=== PATIENT | male | born 1980 | race Caucasian/White ===

== ENCOUNTER → 2018-08-29 | Outpatient (CLI) | payer SELFPAY ==
--- NOTE | 2018-08-29 13:50 | Diagnostic Imaging Report ---
INDICATION: Left testicular pain. FINDINGS: The testicular parenchyma appears homogenous and normal with normal color Doppler blood flow. Incidentally noted is a tiny 7 mm epididymal head cyst on the right. The left epididymis appears mildly hypervascularized and hypoechoic, suspicious for mild epididymitis. No evidence for orchitis. The right epididymis is borderline hypervascular. IMPRESSION: The sonographic findings are suspect for left-sided epididymitis with more mild involvement on the right not excluded. No evidence for torsion or orchitis. No abscess, hernia, or varicocele. Dictated by: Dictated on workstation # [id number]
== END ==
LOC: RAD 12:20
PROVIDERS: ATTEND Nurse Practitioner Family
DX: N50.812 Left testicular pain (principal)
CPT/HCPCS: 76870

== ENCOUNTER 2019-07-13 05:38 | Outpatient (CLI) | payer OTHER ==
[~2019-07-13] VITALS: Ht 177 cm; Wt 97.9 kg
== END 2019-07-13 12:52 ==
LOC: PREOP 05:38
PROVIDERS: ATTEND Podiatrist Foot & Ankle Surgery
DX: Z01.818 Encounter for other preprocedural examination (principal)

== ENCOUNTER 2019-07-17 12:04 | Day surgery (SDC) | payer OTHER ==
[~2019-07-17] VITALS: Ht 177 cm; Wt 97.9 kg
[2019-07-17] VITALS (12 sets, daily range): BP systolic 14–122; BP diastolic 66–82
[2019-07-17] MEDS ORDERED: ceFAZolin INJECTION 1,000 MG in WATER (STERILE) FOR INJECTION 10 ML IV ONE (12:30)
[2019-07-17] MEDS ORDERED: DEXAMETHASONE 10 MG/ML (DECADRON) 1 ML VIAL ONE ×2 (12:46→12:54)
[2019-07-17] MEDS ORDERED: LIDOCAINE 1% INJ 20 ML 20 ML VIAL ONE (12:46)
[2019-07-17] MEDS ORDERED: BUPIVACAINE 0.5% 30 ML (SENSORCAINE) VIAL ONE (12:46)
[2019-07-17] MEDS ORDERED: proPOfol 200 MG/20 ML (DIPRIVAN) VIAL IV ONE (12:54)
[2019-07-17] MEDS ORDERED: ONDANSETRON 4 MG/2 ML (SDV) Z0FRAN ONE (12:54)
[2019-07-17] MEDS ORDERED: fentaNYL INJECTION 100 MCG/2 ML AMP ONE (12:54)
[2019-07-17] MEDS ORDERED: SEVOFLURANE (ULTANE) 15 ML INHAL SOLN ONE ×2 (12:54→15:36)
[2019-07-17] MEDS ORDERED: MIDAZOLAM 2 MG/2 ML (VERSED) VIAL ONE (12:54)
[2019-07-17] MEDS ORDERED: LIDOCAINE PF 2% 5 ML (XYLOCAINE) VIAL ONE (12:54)
[2019-07-17] MEDS ORDERED: LACTATED RINGERS 1,000 ML IV PRN (13:48)
[2019-07-17] MEDS ORDERED: fentaNYL INJECTION 100 MCG/2 ML AMP IVP ONE (14:30)
[2019-07-17] MEDS ORDERED: ONDANSETRON 4 MG/2 ML (SDV) Z0FRAN IVP PRN ×2 (14:30→16:00)
[2019-07-17] MEDS ORDERED: morphine INJ 10 MG/ML 1ML (SYR OR VIAL) IVP ONE ×2 (14:30→16:00)
[2019-07-17] MEDS ORDERED: MEPERIDINE (DEMEROL) INJ 50 MG/ML IVP ONE ×2 (14:30→16:00)
--- NOTE | 2019-07-17 15:47 | Anesthesia-General Post-Op ---
General Patient Condition Mental Status/LOC: Same as Preop Cardiovascular: Satisfactory Nausea/Vomiting: Absent Respiratory: Satisfactory Pain: Controlled Complications: Absent Post Op Complications Complications None Follow Up Care/Instructions Patient Instructions None needed. Anesthesia/Patient Condition Patient Condition Patient is doing well, no complaints, stable vital signs, no apparent adverse anesthesia problems. No complications reported per nursing. LOPEZ MCCLURE CRNA Jul 17, 2019 15:47 POS
--- NOTE | 2019-07-17 15:53 | Progress Note-Pre Operative ---
Pre-Operative Progress Note H&P Reviewed The H&P was reviewed, patient examined and no changes noted. Date Seen by Provider: Jul 17, 2019 Time Seen by Provider: 14:00 Date H&P Reviewed: Jul 17, 2019 Time H&P Reviewed: 14:00 Pre-Operative Diagnosis: Fracture right 5th metatarsal VIOLA CHEN DPM Jul 17, 2019 15:53 POS
[2019-07-17] MEDS ORDERED: LACTATED RINGERS 1,000 ML IV SCH (15:54)
--- NOTE | 2019-07-17 15:54 | Progress Note-Post Operative ---
Post-Operative Progess Note Surgeon (s)/Scene Painter (s) Surgeon VIOLA CHEN DPM Scene Painter: none Pre-Operative Diagnosis Fracture right 5th metatarsal Post-Operative Diagnosis Same Procedure & Operative Findings Date of Procedure 07/17/19 Procedure Performed/Findings ORIF of right 5th Metatarsal Fracture Anesthesia Type General Estimated Blood Loss Estimated blood loss (mL): Minimal Specimens/Packing Specimens Removed None VIOLA CHEN DPM Jul 17, 2019 15:54 POS
[2019-07-17] MEDS ORDERED: CEPH500C PO (15:56)
[2019-07-17] MEDS ORDERED: ACHD5005 PO (15:56)
[2019-07-17] MEDS ORDERED: HYDROcodone/APAP 5 MG/325 MG (LORTAB) TAB PO PRN (16:00)
--- NOTE | 2019-07-17 16:00 | Diagnostic Imaging Report ---
INDICATION: Fluoroscopy for left foot surgery. EXAMINATION: Fluoroscopy was provided in the OR during left foot surgery. 7 seconds of fluoroscopic time was utilized. FINDINGS: Images demonstrate a partially threaded screw transfixing the proximal 5th metatarsal. Alignment is anatomic. IMPRESSION: Fluoroscopy for left 5th metatarsal ORIF. Dictated by: Dictated on workstation # [id number]
--- NOTE | 2019-07-18 03:17 | OPERATIVE REPORT ---
DATE OF SERVICE: 07/17/2019 SURGEON: Nayeli Rahman DPM. PREOPERATIVE DIAGNOSIS: Avulsion fracture of the right fifth metatarsal base. POSTOPERATIVE DIAGNOSIS: Avulsion fracture of the right fifth metatarsal base. PROCEDURE: Open reduction and internal fixation, right fifth metatarsal fracture. WOUND CLASS: Clean. ANESTHESIA: General. HEMOSTASIS: Pneumatic thigh tourniquet at 250 mmHg. INDICATIONS: This is a 39-year-old male presents complaining of painful fracture to the right fifth metatarsal. Conservative therapy unlikely to work well as the gap was approximately 5 mm. So with this displaced fracture, we decided an open reduction and internal fixation after risks and complications were discussed at length. No guarantees were extended to the patient and he is willing to proceed. DESCRIPTION OF PROCEDURE: The patient was brought back to the operating table and placed in secure supine position. A general anesthetic was then induced. Appropriate timeout was performed. Pneumatic thigh tourniquet was placed on the right lower extremity over several layers of padding. The right foot was then prepped and draped in normal sterile manner. The right foot was then elevated, allowed to exsanguinate after which the tourniquet was inflated to 250 mmHg. Attention was then directed to the lateral aspect of the right fifth metatarsal base area where a 5.5 cm longitudinal linear incision was created. The incision was deepened in the same plane with great care to identify and retract all vital neurovascular structures. All the necessary blood vessels were cauterized as encountered. The incision was deepened down to the periosteum to the fifth metatarsal base where the fracture was identified. After evacuating some of the granular tissue in the gap of the fracture site, the cortical edges came back to good approximation utilizing a fracture clamp. Next, utilizing a guidewire driven from proximal to distal down the diaphysis, appropriate length and placement was confirmed with intraoperative C-arm. Next, a 4.0 headless compression screw by [email or web address] 42 mm of length was used with standard technique and placed over the guidewire after predrilling the proximal fracture fragment and countersinking the screw was driven down the cortices compression fracture fragment in appropriate alignment. Intraoperative C-arm confirmed appropriate reduction of the fracture as well as placement of the internal screw. The wound was flushed with copious amounts of normal saline throughout the procedure. The wound was then closed in layers. Deep closure was performed with 3-0 Vicryl, superficial with 4-0 Vicryl, skin closed with 4-0 Prolene in a horizontal mattress type stitch. Postoperative injection consisted of 15 mL of 0.5% Marcaine plain injected in local infusion to the surgical site. Postoperative dressing was then applied after the tourniquet was released. The toes had appropriate cap refill time to all digits of the right foot. The postoperative dressing consisted of Betadine soaked Adaptic, sterile 4 x 4, sterile Kerlix, soft roll, application of a posterior splint to the right lower extremity secured by two David wraps. The patient tolerated the anesthesia and procedure well, was transported from the operating room to the recovery area with vital signs stable and vascular status intact to all digits of the right foot. He is to follow up in my office in 10 days' period of time or sooner if necessary. Prescription for Keflex and Vicodin were also dispensed to the patient today. Job ID: [id number] DocumentID: [id number] Dictated Date: 07/17/2019 16:03:22 Auto Transport Driver Date: 07/18/2019 03:17:30 Dictated By: WILLIAMS TUCKER
--- OUTSIDE RECORDS SUMMARY | 2019-08-12 18:20 | XMS REPORT | Continuity of Care Document ---
Author Organization Unknown Address Unknown Phone Unavailable Allergies There is no data. Medications There is no data. Problems There is no data. Procedures There is no data. Results Test Result Range TSH - 11/25/18 09:18 TSH 4.79 mIU/L 0.40-4.50 Encounters ACCT No. Visit Date/Time Discharge Status Pt. Type Provider Facility Loc./Unit Complaint [id number] 07/14/2019 08:20:00 07/14/2019 23:59: 59 [facility] Outpatient LINDA FRANZ [facility] [id number] 11/25/2018 08:40:00 Document Registration
== END 2019-07-17 17:45 | disposition home or self-care (01) ==
LOC: SDC 12:04
PROVIDERS: ATTEND Podiatrist Foot & Ankle Surgery
DX: S92.351A Displaced fracture of fifth metatarsal bone, right foot, initial encounter for closed fracture (principal); E78.5 Hyperlipidemia, unspecified; K21.9 Gastro-esophageal reflux disease without esophagitis; E66.9 Obesity, unspecified; Z68.31 Body mass index [BMI] 31.0-31.9, adult; Z88.8 Allergy status to other drugs, medicaments and biological substances; Z87.891 Personal history of nicotine dependence; Z82.49 Family history of ischemic heart disease and other diseases of the circulatory system
CPT/HCPCS: 87081

== ENCOUNTER → 2020-06-24 | Outpatient (CLI) | payer OTHER ==
[~2020-06-24] MED LIST: ACHD5005 PO; CEPH500C PO; HOLD METFORMIN - RECEIVED CONTRAST 20 ML VIAL IV SCH; IOHEXOL 350 MG/ML 100 ML (OMNIPAQUE 350) VIAL IV ONE; NS 100 ML (IVPB) BAG IV ONE
--- NOTE | 2020-06-24 09:10 | Diagnostic Imaging Report ---
PROCEDURE: CT abdomen and pelvis with contrast. TECHNIQUE: Multiple contiguous axial images were obtained through the abdomen and pelvis after administration of intravenous contrast. Auto Exposure Controls were utilized during the CT exam to meet ALARA standards for radiation dose reduction. All CT scans use one or more of the following dose optimizing techniques: automated exposure control, MA and/or KvP adjustment based on patient size and exam type or iterative reconstruction. INDICATION: Abdominal pain. Right inguinal lesion. COMPARISON: None FINDINGS: Included portions of lung bases show small calcified granuloma within the lingula of the left upper lobe. CT ABDOMEN: Normal appendix is identified. Small bowel loops are nondistended. Liver is diffusely hypodense on this postcontrast exam. No focal hepatic masses are seen. The liver, kidneys, adrenal glands, spleen, pancreas have an otherwise normal CT appearance. There is no loculated fluid collection, free fluid or free air within the abdomen. No abnormal mesenteric or retroperitoneal adenopathy is identified. Osseous structures show no acute abnormalities. CT pelvis: Urinary bladder is grossly unremarkable. There are bilateral fat-containing inguinal hernias, left greater than right. There is no loculated fluid collection, free fluid or free air within the pelvis. No abnormal lymph nodes are identified. Osseous structures show no acute abnormalities. IMPRESSION: 1. No acute abnormalities are seen within the abdomen or pelvis. 2. Hepatic steatosis. 3. Fat-containing bilateral inguinal hernias, left larger than right. Dictated by: Dictated on workstation # [id number]
== END ==
LOC: RAD 08:15
PROVIDERS: ATTEND Internal Medicine
DX: K76.0 Fatty (change of) liver, not elsewhere classified (principal); K40.90 Unilateral inguinal hernia, without obstruction or gangrene, not specified as recurrent
CPT/HCPCS: 74177